=== PATIENT | male | born 1990 | race Caucasian/White ===

== ENCOUNTER 2017-12-22 13:47 | Emergency (ER) | payer SELFPAY ==
[~2017-12-22] VITALS: Ht 177.8 cm; Wt 59.1 kg
[2017-12-22 14:14] VITALS: Ht 177.8 cm; Wt 59.1 kg
[2017-12-22] MEDS ORDERED: ROBAXIN500 MG PO (15:56)
[2017-12-22] MEDS ORDERED: ULTRAM50 MG PO (15:56)
[2017-12-22 16:07] VITALS: BP 115/67
== END 2017-12-22 16:08 | disposition home or self-care (01) ==
LOC: D.ER 13:47
DX: S39.012A Strain of muscle, fascia and tendon of lower back, initial encounter (principal); W20.8XXA Other cause of strike by thrown, projected or falling object, initial encounter; Y93.89 Activity, other specified; Y92.89 Other specified places as the place of occurrence of the external cause; S29.012A Strain of muscle and tendon of back wall of thorax, initial encounter

== ENCOUNTER 2018-10-10 22:10 | Emergency (ER) | payer MEDICAID ==
[~2018-10-10 22:10] MED LIST: ROBAXIN500 MG PO; ULTRAM50 MG PO
[2018-10-10 22:12] VITALS: BMI 18.6
[2018-10-10] MEDS ORDERED: HYDROCODON-ACE1 EA10 PO (23:10)
[2018-10-10 23:53] VITALS: BP 1328/69
== END 2018-10-10 23:54 | disposition home or self-care (01) ==
LOC: D.ER 22:10
DX: S61.512A Laceration without foreign body of left wrist, initial encounter (principal); W26.0XXA Contact with knife, initial encounter; Y93.89 Activity, other specified; Y92.89 Other specified places as the place of occurrence of the external cause

== ENCOUNTER 2018-10-17 15:15 | Emergency (ER) | payer MEDICAID ==
[~2018-10-17] VITALS: Ht 177.8 cm; Wt 58.7 kg
[~2018-10-17 15:15] MED LIST changes: +HYDROCODON-ACE1 EA10 PO
[2018-10-17 15:44] VITALS: Ht 177.8 cm; Wt 58.7 kg
[2018-10-17] MEDS ORDERED: VIBRAMYCIN 100100 MG PO (16:36)
[2018-10-17] MEDS ORDERED: VOLTAREN75 MG PO (16:36)
[2018-10-17 17:05] VITALS: BP 125/74
== END 2018-10-17 17:06 | disposition home or self-care (01) ==
LOC: D.ER 15:15
DX: L03.114 Cellulitis of left upper limb (principal)

== ENCOUNTER 2018-12-23 11:57 | Emergency (ER) | payer MEDICAID ==
[~2018-12-23] VITALS: Ht 177.8 cm; Wt 59.1 kg
[~2018-12-23 11:57] MED LIST changes: +VIBRAMYCIN 100100 MG PO; +VOLTAREN75 MG PO
[2018-12-23 12:04] VITALS: Ht 177.8 cm; Wt 59.1 kg
[2018-12-23] MEDS ORDERED: TORADOL10 MG PO (12:52)
[2018-12-23 13:28] VITALS: BP 111/68
== END 2018-12-23 13:28 | disposition home or self-care (01) ==
LOC: D.ER 11:57
DX: S69.91XA Unspecified injury of right wrist, hand and finger(s), initial encounter (principal); W20.8XXA Other cause of strike by thrown, projected or falling object, initial encounter; Y93.89 Activity, other specified; Y92.89 Other specified places as the place of occurrence of the external cause

== ENCOUNTER 2019-04-14 20:27 | Emergency (ER) | payer MEDICAID ==
[~2019-04-14] VITALS: Ht 177.8 cm; Wt 62.3 kg
[~2019-04-14 20:27] MED LIST changes: +TORADOL10 MG PO
[2019-04-14 21:00] VITALS: Ht 177.8 cm; Wt 62.3 kg
[2019-04-15] MEDS ORDERED: KEFLEX500 MG PO (00:11)
[2019-04-15 01:15] VITALS: BP 128/68
== END 2019-04-15 01:01 | disposition home or self-care (01) ==
LOC: D.ER 20:27
DX: J06.9 Acute upper respiratory infection, unspecified (principal); J03.90 Acute tonsillitis, unspecified; Z72.0 Tobacco use; D66 Hereditary factor VIII deficiency; R05 Cough

== ENCOUNTER 2019-06-03 21:46 | Emergency (ER) | payer MEDICAID ==
[~2019-06-03] VITALS: Ht 177.8 cm; Wt 59.0 kg
[~2019-06-03 21:46] MED LIST changes: +KEFLEX500 MG PO
[2019-06-03 21:51] VITALS: Ht 177.8 cm; Wt 59.0 kg
[2019-06-03 22:12] LABS: BASOPHILS 0.1 % (0-2); EOSINOPHILS 1.1 % (0-7); HEMATOCRIT 42.5 % (42.0-54.0); HEMOGLOBIN 14.8 g/dL (13.5-17.5); IMMATURE GRANULOCYTES 0.2 % (0-5); LYMPHOCYTES 25.2 % (15-50); MCH 31.4 pg (26.0-34.0); MCHC 34.8 g/dL (31.0-37.0); MCV 90.2 fL (80.0-100.0); MEAN PLATELET VOLUME 9.5 fL (7.4-10.4); MONOCYTES 8.1 % (2-11); NEUTROPHILS 65.3 % (40-80); PLATELET COUNT 254 10x3/uL (130-400); RBC 4.71 10x6/uL (4.20-6.10); RDW 12.4 % (11.5-14.5); WBC 8.3 10x3/uL (4.8-10.8)
[2019-06-03 22:15] LABS: APPEARANCE CLEAR (CLEAR); BILIRUBIN NEGATIVE (NEGATIVE); COLOR STRAW (YELLOW); GLUCOSE NEGATIVE (NEGATIVE); KETONE NEGATIVE (NEGATIVE); NITRITE NEGATIVE (NEGATIVE); PROTEIN NEGATIVE (NEGATIVE); SPECIFIC GRAVITY 1.005 (1.005-1.020); UROBILINOGEN NORMAL (NORMAL)
[2019-06-03 22:22] LABS: UDS - AMPHET NEGATIVE QUAL (NEGATIVE); UDS - BARB NEGATIVE QUAL (NEGATIVE); UDS - BENZO NEGATIVE QUAL (NEGATIVE); UDS - COCAINE NEGATIVE QUAL (NEGATIVE); UDS - OPIATE NEGATIVE QUAL (NEGATIVE); UDS - PCP NEGATIVE QUAL (NEGATIVE); UDS - THC POSITIVE QUAL (NEGATIVE)
[2019-06-03 22:23] LABS: CALC OSMOLALITY 281 mosm/kg (275-300); CALCIUM 9.2 mg/dL (8.5-10.1); CHLORIDE - SERUM 105 mmol/L (98-107); CREATININE - SERUM 0.9 mg/dL (0.6-1.3); GLUCOSE 85 mg/dL (74-106); POTASSIUM - SERUM 3.6 mmol/L (3.5-5.1); SODIUM 143 mmol/L (136-145); UREA NITROGEN 7 mg/dL (7-18); eGFR NON AFRICAN AMERICAN > 90 mL/min (90-120)
[2019-06-03 22:28] LABS: ALBUMIN 3.9 g/dL (3.4-5.0); ALKALINE PHOSPHATASE 97 U/L (46-116); ALT (SGPT) 35 U/L (10-68); BILIRUBIN - TOTAL 0.19 mg/dL (0.2-1.3); MAGNESIUM - SERUM 2.1 mg/dL (1.8-2.4); PROTEIN - SERUM 7.5 g/dL (6.4-8.2)
--- NOTE | 2019-06-03 23:22 | NUR ---
PATIENT EVALUATED FOR SUICIDE. PATIENT SCORED A "0". PATIENT DENIES WANTING TO COMMIT SUICIDE, PATIENT'S MOTHER IS A WITNESS. PATIENT DID NOT WANT TO ANSWER SOME OF THE QUESTIONS AND SAID THAT THEY WERE IRREVELANT. SUICIDE HOT LINE NUMBER GIVEN TO PATIENT TO USE. PATIENT VERBALIZED UNDERSTANDING.
[2019-06-04 03:09] VITALS: BP 112/73
== END 2019-06-04 09:20 ==
LOC: D.ER 21:46
PROVIDERS: Family Medicine
DX: T48.202A Poisoning by unspecified drugs acting on muscles, intentional self-harm, initial encounter (principal); Y92.9 Unspecified place or not applicable; D68.0 Von Willebrand disease

== ENCOUNTER 2020-10-03 03:03 | Emergency (ER) | payer MEDICAID ==
[~2020-10-03] VITALS: Ht 177.8 cm; Wt 63.6 kg
[2020-10-03 04:15] VITALS: BP 118/64; Ht 177.8 cm; Wt 63.6 kg
== END 2020-10-03 04:37 | disposition home or self-care (01) ==
LOC: D.ER 03:03
DX: Z71.1 Person with feared health complaint in whom no diagnosis is made (principal)